=== PATIENT | female | born 1940 | race Caucasian/White ===

== ENCOUNTER 2018-01-16 21:06 | Emergency (ER) | payer OTHER ==
[~2018-01-16] VITALS: Ht 160 cm; Wt 71.2 kg
[~2018-01-16 21:06] MED LIST: BAYER CHEWABLE81 MG PO; BENTYL 20 MG TA20 M1 PO; CELEXA 10 MG TA10 M1 PO; CELEXA10 MG PO; CIPRO500 MG PO; EYE DROPS GLAUCOMA; FLAGYL500 MG PO; FLOMAX0.4 MG PO; HYDROCODON-ACE1 EAC7 PO; LEVOTHYROXINE 0.1 MG PO; LEVOTHYROXINE0.05 MG PO; LEVOTHYROXINE0.2 M1 PO; PHENAZOPYRIDIN200 M2 PO; TRAMADOL 50 MG50 MG PO; ULTRAM 50MG TAB50 MG; WELCHOL 625 MG625 MG PO
[2018-01-16 21:40] LABS: URINE BILIRUBIN NEGATIVE (Negative); URINE BLOOD 1+ (Negative); URINE CLARITY CLEAR; URINE COLOR YELLOW; URINE GLUCOSE-RANDOM NEGATIVE (Negative); URINE KETONES NEGATIVE (Negative); URINE LEUKOCYTES-REFLEX 1+ (Negative); URINE NITRITE-REFLEX NEGATIVE (Negative); URINE PROTEIN NEGATIVE (Negative); URINE SPECIFIC GRAVITY 1.025 (1.005-1.030); URINE UROBILINOGEN 0.2 E.U./dl (0.2-1.0)
[2018-01-16 21:48] LABS: HEMATOCRIT 39.2 % (37.0-47.0); HEMOGLOBIN 13.7 gm/dL (12.0-15.0); MCH 33.9 pg (26.0-34.0); MCHC 34.8 g/dL (28.0-37.0); MCV 97.3 fL (80.0-100.0); MPV 7.3 fl. (7.2-11.1); NUCLEATED RBCS 0 /100WBC; PLATELET COUNT* 278 thou/uL (150-400); RBC 4.03 mil/uL (4.20-5.00); RDW-CV 13.1 % (10.5-14.5); WBC 18.1 thou/uL (4.0-11.0)
[2018-01-16 21:50] LABS: SQUAMOUS >10 Many /LPF (0-3)
[2018-01-16 21:51] LABS: MUCUS >6 Heavy strn/LPF (None Seen)
[2018-01-16 21:52] LABS: URINE WBC-REFLEX 6-15 Few /HPF (0-5)
[2018-01-16 21:53] LABS: URINE RBC 3-10 Few /HPF (0-2)
[2018-01-16 21:55] LABS: CRYSTALS None Seen /LPF (None Seen)
[2018-01-16 21:58] LABS: CALCIUM 9.3 mg/dL (8.5-10.1); POTASSIUM 3.9 mmol/L (3.5-5.1)
[2018-01-16 22:01] LABS: CASTS None Seen /LPF (None Seen)
[2018-01-16 22:03] LABS: ALBUMIN 3.4 g/dL (3.4-5.0); TOTAL BILIRUBIN 0.8 mg/dL (<0.1-1.0); TOTAL PROTEIN 6.9 g/dL (6.4-8.2)
[2018-01-16 22:58] LABS: ABSOLUTE LYMPHOCYTES 1.1 thou/uL (0.8-5.3); ABSOLUTE MONOCYTES 0.7 thou/uL (0.0-1.2); ABSOLUTE NEUTROPHILS 16.3 thou/uL (1.6-8.1); PLATELET ESTIMATE ADEQUATE
[2018-01-16 23:00] LABS: INFLUENZA A ANTIGEN None Detected (None Detect); INFLUENZA B ANTIGEN None Detected (None Detect)
[2018-01-16] MEDS ORDERED: KEFLEX500 M1 PO (23:01)
[2018-01-16 23:25] VITALS: BP 98/41
[2018-04-01] MEDS ORDERED: B COMPLEX # 11 EACH PO (14:21)
[2018-04-01] MEDS ORDERED: VITAMINC500 PO (14:21)
[2018-04-01] MEDS ORDERED: XALATAN2.5 ML OPHTHALMIC (14:22)
[2018-04-01] MEDS ORDERED: VITAMIN D1000 UNI1 PO (14:22)
[2018-04-01] MEDS ORDERED: FISH OIL 1,001000 M2 PO (14:22)
[2018-04-01] MEDS ORDERED: MULTI-VITAMIN1 EAC5 PO (14:23)
[2018-04-01] MEDS ORDERED: POTASSIUM PO (14:24)
[2018-04-01] MEDS ORDERED: TYLENOL EXTRA500 MG PO (14:25)
== END 2018-01-16 23:45 | disposition home or self-care (01) ==
LOC: M.ERS 21:06
PROVIDERS: Physician Assistant
DX: R50.9 Fever, unspecified (principal); N39.0 Urinary tract infection, site not specified; D72.829 Elevated white blood cell count, unspecified; K21.9 Gastro-esophageal reflux disease without esophagitis; E03.9 Hypothyroidism, unspecified; Z88.5 Allergy status to narcotic agent

== ENCOUNTER → 2018-02-02 | Outpatient (CLI) | payer OTHER ==
[~2018-02-02] MED LIST changes: +B COMPLEX # 11 EACH PO; +FISH OIL 1,001000 M2 PO; +FLEXERIL PO; +KEFLEX500 M1 PO; +MULTI-VITAMIN1 EAC5 PO; +POTASSIUM PO; +TYLENOL EXTRA500 MG PO; +VITAMIN D1000 UNI1 PO; +VITAMINC500 PO; +XALATAN2.5 ML OPHTHALMIC
== END ==
LOC: M.RAD 12:36
DX: J98.11 Atelectasis (principal); R68.89 Other general symptoms and signs; M19.90 Unspecified osteoarthritis, unspecified site

== ENCOUNTER → 2018-02-16 | Outpatient (CLI) | payer OTHER | LOC: M.CT 12:27 | DX: R91.8 Other nonspecific abnormal finding of lung field (principal); N28.1 Cyst of kidney, acquired; K44.9 Diaphragmatic hernia without obstruction or gangrene ==

== ENCOUNTER → 2018-04-01 | Outpatient (CLI) | payer OTHER ==
--- NOTE | 2018-04-15 15:18 | PAINCON ---
[address] [address] PAIN MANAGEMENT CONSULTATION Name: JAY JAY SANDOVAL Room: [facility] Riggins#: [id number] Admission: 04/01/18 Attend Phys: Christina Rey MD Discharge: Date of : 44 Report #: [id number] THIS REPORT FOR: //name// CC: Lucy Covington DATE OF SERVICE: 04/01/2018 CHIEF COMPLAINT: Low back pain and leg pain. HISTORY OF PRESENT ILLNESS: The patient is a 77-year-old female who has been referred to the pain clinic for evaluation of back and leg pain. The patient states that she has been told that she has spinal stenosis. She has pain that radiates down into her right buttocks, groin and experiencing some pins and needle sensations in her legs. It involves her feet. She also has some problems with her hands. She is contemplating undergoing carpal tunnel release on 04/05/2018. She has been referred to the pain clinic for a trial of epidural steroid injections. Rates her pain as a 1 when she is sitting without activity with the pain can increase as a result of increased activity. Prolonged sitting can sometimes exacerbate her pain. She uses Tylenol and ibuprofen to help with pain control. She notes that activities such as walking the dog, driving the car, bending can sometimes be problematic. She tries to stay active. There is an active group called the [employer]. When engaged with activities with this group, she has noted some worsening of her pain and has had to stop. Describes her discomfort as periodic, aching, sharp and gnawing. Rates it as an 8/10 when at its worse and has not had back surgeries. ALLERGIES: CEPHALEXIN, DIAZEPAM, HYDROCODONE. CURRENT MEDICATIONS: Tylenol 500 mg daily, ascorbic acid 500 mg b.i.d., vitamin D 1000 units, fish oil, Xalatan 0.005% ophthalmic drop, Synthroid 0.1 mg, multivitamin, vitamin B complex, potassium. PAST MEDICAL HISTORY: 1. Gastroesophageal reflux. 2. Hyperlipidemia. 3. Hypothyroidism. 4. Irritable bowel syndrome. 5. Lumbar radiculopathy. 6. Major depressive disease. 7. Carpal tunnel syndrome. PAST SURGICAL HISTORY: Bunionectomy, cataract extraction, cholecystectomy in [address] [address] PAIN MANAGEMENT CONSULTATION Name: JAY JAY SANDOVAL Room: [facility]#: [id number] Admission: 04/01/18 Attend Phys: Christina Rey MD Discharge: Date of : 42 Report #: [id number] SOCIAL HISTORY: She is retired. REVIEW OF SYSTEMS: Questionnaire 12-point review. Generally good health, headaches, eye disease, wears glasses, blurred vision, hearing loss, frequent diarrhea, awakes to urinate, kidney stones, back pain, varicose veins, frequent recurring headaches, lightheadedness, numbness and tingling, memory loss, depression. LABORATORY DATA: MRI of the lumbar spine dated 04/17/2016. 1. L5-S1 shows prominent facet degenerative change bilaterally. There is mild disk bulging and some mild endplate spurring. The facet spurring and disk bulging cause some foraminal encroachment bilaterally. Central spinal is minimally narrowed. 2. L4-L5 shows prominent central spinal stenosis. There is a diffuse disk bulge and prominent facet spurring and facet degenerative change. Ligamentum flavum hypertrophy is noted. There is bilateral recess and foraminal narrowing. 3. L4-L5 shows diffuse disk bulging. There is central canal stenosis with central canal measuring 6 mm. Moderate facet degenerative changes with ligamentum flavum hypertrophy. Lateral recess and neural foramen are maintained. 4. L1-L2. No focal disk protrusion. There is mild disk bulging, central canal is narrowed measuring 7 mm. There is moderate facet spurring and degenerative change. MRI of the left forefoot, 07/2013 findings consistent with mid foot injury. There are bone contusions at the base of the first metatarsal, and medial cuneiform. The Lisfranc ligament is poorly defined raising concern for at least a high-grade partial thickness Lisfranc ligament tear. MRI of the head without contrast, indication headache and right-sided paresthesia, 03/11/2016. Impression: Global atrophy and moderate white matter changes most likely ischemic without hemorrhage, acute infarction or other lateralizing abnormalities seen and no other acute abnormalities seen. PAIN CLINIC ASSESSMENT: 1. History of osteoarthritis with changes in the low back area with spinal stenosis. 2. Height 5 feet 3 inches, weight 160 pounds, BMI is 28. Vital Signs: Blood pressure 111/67, heart rate 62, respiratory rate 16, room air saturation 97%, temperature 98.2. 3. Fall risk. The patient has not fallen in the last 3 months. 4. The patient on a blood thinning agent, patient is not on a blood thinner. 5. History of hypertension. The patient is not being treated for hypertension. 6. Opioid greater than 6 weeks. The patient is not on opioid therapy. 7. Risk assessment tool. 8. Functional assessment tool. 9. Recreational drug use. The patient denies use of recreational drugs. 10. Tobacco: The patient denies use of alcoholic beverages. 11. Tobacco: The patient denies use of tobacco. [address] [address] PAIN MANAGEMENT CONSULTATION Name: JAY JAY SANDOVAL Room: [facility]#: [id number] Admission: 04/01/18 Attend Phys: Christina Rey MD Discharge: Date of : 44 Report #: [id number] PHYSICAL EXAMINATION: GENERAL: The patient is a well-developed white female, appears her stated age. She is alert and oriented x 3. She has fluent speech. HEENT: Normocephalic, atraumatic. Extraocular eye muscles intact. The patient is wearing glasses. Hearing is within normal limits. Mucous membranes are moist. NECK: Without adenopathy or JVD. Good range of motion. LUNGS: Clear to auscultation. HEART: Regular rate. S1, S2. ABDOMEN: Nontender. MUSCULOSKELETAL: Without significant scoliosis, kyphosis or lordosis. Upper extremity muscle strength is judged to be 5/5 for the major muscle groups of the upper extremity. Lower extremity, the patient's muscle strength in the lower extremities judged to be 5/5 for the major muscle groups. Does complain of some pain and discomfort while sitting. States that the pain sometimes increases while she is sitting. Sometimes stands to decrease pain and discomfort on the left side. Muscle bulk and tone symmetrical in the lower extremities. ASSESSMENT: 1. History of symptomatic lumbar radiculopathy. 2. Severe spinal stenosis in the lumbar spine with 6 mm and 7 mm narrowing. 3. Displaced lumbar intervertebral disk with radiculopathy. 4. Lumbosacral spondylosis with radiculopathy. 5. Degenerative change of the lumbar spine. 6. Chronic intractable pain. RECOMMENDATIONS: We discussed treatment options with the patient and her . Risks and benefits of an epidural steroid injection were discussed. Possible complications of epidural steroid injection were reviewed. At this juncture, the patient is going to undergo surgery for her carpal tunnel syndrome. We will have her speak with her surgeon. When he feels this is appropriate, we would then proceed with an epidural steroid injection. She will call us in the near future. The patient is slated to undergo carpal tunnel release on 04/05/2018. We would like to thank you for letting us participate in her care. We hope she continues to improve. <ELECTRONICALLY SIGNED> By: Christina Rey MD 04/15/18 [id number]. Cisco Rey MD /[facility]
== END ==
LOC: M.PC 01:20
DX: M47.27 Other spondylosis with radiculopathy, lumbosacral region (principal); M47.26 Other spondylosis with radiculopathy, lumbar region; M48.061 Spinal stenosis, lumbar region without neurogenic claudication; M51.16 Intervertebral disc disorders with radiculopathy, lumbar region

== ENCOUNTER 2018-08-25 07:12 | Emergency (ER) | payer OTHER ==
[~2018-08-25] VITALS: Ht 160 cm; Wt 69.0 kg
[~2018-08-25 07:12] MED LIST changes: -FLEXERIL PO
[2018-08-25] MEDS ORDERED: TRAMADOL 50 MG50 MG PO (07:53)
[2018-08-25] MEDS ORDERED: FLEXERIL PO (07:53)
[2018-08-25 08:27] VITALS: BP 121/56
== END 2018-08-25 08:27 | disposition home or self-care (01) ==
LOC: M.ERS 07:12
DX: S06.0X0A Concussion without loss of consciousness, initial encounter (principal); K21.9 Gastro-esophageal reflux disease without esophagitis; K58.9 Irritable bowel syndrome, unspecified; E03.9 Hypothyroidism, unspecified; F32.9 Major depressive disorder, single episode, unspecified; Z90.49 Acquired absence of other specified parts of digestive tract; Z87.442 Personal history of urinary calculi; Z90.710 Acquired absence of both cervix and uterus; Z88.1 Allergy status to other antibiotic agents; Z88.5 Allergy status to narcotic agent; Z88.8 Allergy status to other drugs, medicaments and biological substances; W22.8XXA Striking against or struck by other objects, initial encounter; Y93.89 Activity, other specified; Y92.89 Other specified places as the place of occurrence of the external cause; Y99.8 Other external cause status

== ENCOUNTER → 2018-10-26 | Outpatient (CLI) | payer OTHER ==
[~2018-10-26] MED LIST changes: +FLEXERIL PO
--- NOTE | ~2018-10-26 | PAINCON ---
[address] [address] PAIN MANAGEMENT CONSULTATION Name: JAY JAY SANDOVAL Room: [facility] Riggins#: [id number] Admission: 10/26/18 Attend Phys: Christina Rey MD Discharge: Date of : 44 Report #: [id number] THIS REPORT FOR: //name// CC: Lucy Rey DATE OF SERVICE: 10/26/2018 CHIEF COMPLAINT: Back and leg pain, history of spinal stenosis. FOLLOWUP HISTORY: The patient is a 77-year-old female who has been seen in the Pain Clinic in the past because of chronic pain involving her low back. She states that she has pain in the low back area. She does suffer from spinal stenosis. She has had some pain that radiates down the posterior portion of her right buttocks as well as some pain in the left buttocks area as well. It was felt that the pain was more problematic in the left buttocks at [facility]. Now it is more problematic in the right. Notes that activities such as walking the dog move have been problematic. She states that they are moving. She has been packing over the last 2 weeks. She has noted some increased pain and discomfort as a result of that. She has been using Tylenol to help her pain 2 tablets q. 4 hours. Also, has a history of irritable bowel syndrome. She states that she is unable to take aspirin type medications because of the irritable bowel problems. She has tried a Medrol Dosepak in the past. States that these medications cause some feeling of depression, irritability, anger and "made her mad." She also has some pain in her right hip area. She states that she has not fallen or had any trauma. Notes that the pain sometimes is exacerbated by bending and activity. The patient had been engaged in an active group called the [employer]. She has not had epidural injections in the past. She has not had surgery in the past. Describes her pain as excruciating at times. Rates it today as a 6/10. Pain is exacerbated with walking, riding in the car, reaching her arms up high. Helps sometimes with use of medication. ALLERGIES: CEPHALEXIN, DIAZEPAM, HYDROCODONE. CURRENT MEDICATIONS: Tylenol 500 mg 2 tablets q. 4 hours p.r.n., vitamin C 500 mg, vitamin D 1000 mg, fish oil, Xalatan 0.005 ophthalmic drops, Synthroid 0.1 mg, multivitamin, vitamin B complex, potassium. PAIN CLINIC ASSESSMENT/PQRS: 1. The patient has history of osteoarthritis with changes in the low back area with spinal stenosis. 2. Height 5 feet 3 inches, weight 156 pounds, BMI is 27.6. 3. Vital signs: Blood pressure 109/49, heart rate 81, respiratory rate 16, room air saturation 97%, temperature 97.7. 4. Pain intensity 6/10. 5. Fall history: The patient has not fallen in the last 3 [place] [address] PAIN MANAGEMENT CONSULTATION Name: LORIJAY JAY Wagner [id number] Admission: 10/26/18 Attend Phys: Christina Rey MD Discharge: Date of : 44 Report #: [id number] 6. Blood thinner. The patient is not on a blood thinning medication. 7. Hypertension. The patient is not being treated for hypertension. 8. Opioids. The patient is not being treated with opioids. 9. Risk assessment tool, low for opioid use. 10. Functional assessment tool. 11. Recreational drug use. The patient denies use of recreational drugs. 12. Tobacco: The patient denies use of alcoholic beverages. PHYSICAL EXAMINATION: GENERAL: The patient is a well-developed, well-nourished white female. Appears her stated age. She is alert and oriented x 3. Affect is fluent in the presence of her . HEENT: Normocephalic, atraumatic. Extraocular eye muscles intact. Sclerae is nonicteric. Hearing within normal limits. Mucous membranes moist. NECK: Without adenopathy or JVD. Good range of motion. LUNGS: Clear to auscultation. HEART: Regular rate. S1, S2. ABDOMEN: Nontender. MUSCULOSKELETAL: The patient without significant scoliosis, kyphosis, lordosis. Upper extremity muscle strength is judged to be 5-/5 for the major muscle groups in the upper extremity. The patient complains of pain and discomfort in the lower back on the right side as well as some pain down the posterior portion of the right leg in the L5-S1 dermatomal distribution. The patient also complains of some pain in the hip area near the groin on the right side. Complains of pain, which she describes as excruciating around Thanksgiving not quite as problematic at this juncture. Did note movement of pain from one side to the other. ASSESSMENT: 1. History of lumbar radiculopathy. 2. Severe spinal stenosis in the lumbar spine with 6 mm and 7 mm narrowing. 3. Displacement lumbar interarticular disk with radiculopathy. 4. Lumbosacral spondylosis with radiculopathy. 5. Degenerative change of the lumbar spine. 6. Chronic intractable pain. RECOMMENDATIONS: We discussed the options with the patient. The patient states she is unable to take nonsteroidal anti-inflammatory and medications given that she has irritable bowel syndromes. Then we did discuss use of an oral steroids such as prednisone. The patient declined that option at this juncture. She states that she took it before felt that this medication made her feel irritable, depressed, mad and angry. We discussed the use of Tylenol. I explained to the patient, she should not take more than about 3000 mg of Tylenol. She states that q. 4 hours 2 tablets could get her into a toxic range where that one could have problems with toxicity and liver damage. She states that she is aware. We have discussed the other [place] [address] PAIN MANAGEMENT CONSULTATION Name: JAY JAY SANDOVAL Room: [facility]#: [id number] Admission: 10/26/18 Attend Phys: Christina Rey MD Discharge: Date of : 44 Report #: [id number] physical therapy. The patient could try physical therapy with water option. ____. She would like to proceed in that direction. A script for physical therapy has been written. The patient will try with that therapy as well. We would like to thank you for letting us participate in her care. If she decide in the future, she could proceed with an epidural steroid injection. By: [id number]. Cisco Rey MD /nt
== END ==
LOC: M.PC 12:50
DX: M47.27 Other spondylosis with radiculopathy, lumbosacral region (principal); M51.16 Intervertebral disc disorders with radiculopathy, lumbar region; G89.4 Chronic pain syndrome; M48.061 Spinal stenosis, lumbar region without neurogenic claudication